=== PATIENT | male | born 1965 | race Caucasian/White ===

== ENCOUNTER 2024-01-02 09:08 | Emergency (ER) | payer OTHER ==
[~2024-01-02] VITALS: Ht 187.9 cm; Wt 124.7 kg
[2024-01-02] MEDS ORDERED: Sulfamethoxazole/Trimethopri 1 TAB TAB PO ONE (09:25)
[2024-01-02] MEDS ORDERED: SEPTDS PO (09:29)
== END 2024-01-02 09:39 | disposition home or self-care (01) ==
LOC: ED 09:08
DX: L03.115 Cellulitis of right lower limb (principal); Z88.6 Allergy status to analgesic agent; Z88.5 Allergy status to narcotic agent